=== PATIENT | female | born 1985 | race Caucasian/White ===

== ENCOUNTER 2018-11-05 17:45 | Outpatient (CLI) | payer OTHER ==
[~2018-11-05] VITALS: Ht 172.7 cm; Wt 65.5 kg
[2018-11-05 18:19] VITALS: Ht 172.7 cm; Wt 65.5 kg
[2018-11-05 18:20] VITALS: BP 123/80; PULSE 93; RESP 17
--- NOTE | 2018-11-05 23:42 | TRIAGE ---
OB Triage Datetime Report Generated by CPN: 11/05/2018 23:42 Datetime: 11/05/2018 19:01 Labor Evaluation Pattern: Normal: <= 5 Contractions in 10 Minutes Resting Tone Firth: Relaxed Contraction Comments: no uc Heart Rate FHR Baseline Rate: 125 Monitor Mode: External US Variability: Moderate 6-25 bpm Accelerations: 15X15 Decelerations: None Category: Category I Pain Assessment Pain Presence: None/Denies Pain Type: N/A Datetime: 11/05/2018 18:18 Assessment Type: Triage Maternal Assessment Level of Consciousness: Fully Conscious DTR's/Clonus: DTRs 2+; No Clonus Headache: Denies Blurred Vision: No Respiratory Effort: Unlabored; Regular Rhythm; Equal Expansion Breath Sounds, Left: Clear and Equal Breath Sounds, Right: Clear and Equal Nausea/Vomiting: Denies RUQ Epigastric Pain: Denies Lower Extremities Edema: None Degree: None Upper Extremities Edema: None Facial Edema: None Fall Risk Assessment History of Falling: (0) No Secondary Diagnosis: (0) No Ambulatory Aid: (0) Bedrest/Nurse Assist IV Therapy: (0) No Gait: (0) Normal/Bedrest/Immobile Mental Status: (0) Oriented to Own Ability Fall Score: 0 Fall Risk Score Definition: No Risk: No action required Datetime: 11/05/2018 18:13 Time of Arrival: 11/05/2018 17:36 EGA: 38.3 Arrived By: Ambulatory Arrived From: Office Chief Complaint: to triage from md office with referral form for nst, bpp, efw and s/d ration due t o S<D, Factor V deficiency, Movement: Present Contractions: Denies/Absent Rupture of Membranes: Denies Vaginal Bleeding: None Vaginal Discharge: Denies Recent Sexual Intercouse: Denies Abdominal Trauma: Not Applicable Patient Complaints: None Time Provider Notified: 10/29/2018 18:14 Provider Notified: Initial Plan: nst, bpp, efw, s/d ratio
--- NOTE | 2018-11-06 09:59 | PN ---
Triage Information Date/Time Reason for visit: Antepartum testing for size less than date Weeks of Gestation 38 weeks and 3 days /Para -0-2-1 Diabetes: none Hypertention: none Additional information Risk factors: 1. Factor V Leiden mutation (heterozygous) 2. Size less than date Objective Vital Signs Date Temp Pulse Resp B/P (MAP) Pulse Ox O2 O2 Flow FiO2 Time Delivery Rate 11/05/18 98.5 93 17 123/80 18:20 (94) Heart Rate: 130's Contractions: None Results/Medications Imaging Results FINDINGS: There is a single viable intrauterine gestation. Cardiac activity is present with 142 beats per minute. There is a breech head to the maternal left presentation. Measurements were made in order to determine age. The results are as follows: BPD = 8.81 cm 35 weeks 4 days HC = 31.89 cm 35 weeks 6 days AC = 32.52 cm 36 weeks 3 days FL = 6.80 cm 35 weeks 0 days. Estimated gestational age of approximately 35 weeks 5 days. The estimated date of delivery is 12/05/2018. The EFW = 2800 g 10.8% . The placenta is fundal grade 1. There is no evidence for an abruption There is a normal amount of amniotic fluid with an AHSAN = 19.5 cm. IMPRESSION: Single viable intrauterine gestation of approximately 35 weeks 5 days. The estimated date of delivery is 12/05/2018 Estimated weight 2800 g 10.8% Breech position . .Isaiah Hill MD, Date Time Electronically viewed and signed by .Isaiah Hill MD, on 11/05/2018 19:04 .W/ Disposition: Discharge Assessment/Plan 33 years old -0-2-1 with single intrauterine at 38 weeks and 3 da ys with KELY of 11/15/2018 seen in the clinic today. She referred for NST, biophysical profile and ultrasound for EFW for size less than date and Factor V Leiden mutation. She states good movement. She denies nausea, vomiting, shortness of breath, chest pain, headache, visual changes, vaginal bleeding or LOF. -FHR: No sign of metabolic acidosis- Category I -Contractions: None -Ultrasound performed: AHSAN 19.5, BPP 8 out of 8 -EFW as noted above, 10.8%, breech presentation. -Patient discussed over the phone with Dr. Burden who recommend delivery at 39 weeks. She needs prophylactic Lovenox at . -Melia for C/S at 39 for breech presentation, us prior to /S will be performed to confirm presentation, if is cephalic, IOL -Symptoms and sign of labor, preeclampsia, kick count discussed with patient, she voiced understanding. All of her questions answered. -Patient was discharged home in stable condition with the appropriate discharge instructions provided. I would like patient to have close follow-up with her primary physician or outpatient clinic in 1-2 days or return to triage for worsening symptoms or any other urgent concerns. ABI RYAN Nov 06, 2018 09:59
== END 2018-11-05 20:35 | disposition home or self-care (01) ==
LOC: OBT 17:45 → L-D 17:46 → OBT 20:35
PROVIDERS: ATTEND Obstetrics & Gynecology
DX: O26.843 Uterine size-date discrepancy, third trimester (principal); Z3A.38 38 weeks gestation of pregnancy
CPT/HCPCS: 76815; 76818; 76820; G0463

== ENCOUNTER 2018-11-09 08:28 | Inpatient (IN) | payer OTHER ==
[~2018-11-09] VITALS: Ht 172.7 cm; Wt 64.3 kg
[2018-11-09 08:47] VITALS: Ht 172.7 cm; Wt 64.3 kg
[2018-11-09] MEDS ORDERED: CARBOPROST 250 MCG INJ IM PRN ×2 (09:00→17:30)
[2018-11-09] MEDS ORDERED: CEFAZOLIN 2 GM/50 ML (PMX) 50 ML IVPB SCH (09:00)
[2018-11-09] MEDS ORDERED: MISOPROSTOL 200 MCG TAB PR PRN ×2 (09:00→17:30)
[2018-11-09] MEDS ORDERED: OXYTOCIN 30 UNITS/LR 500 ML IV SCH ×2 (09:00→17:12)
[2018-11-09] MEDS ORDERED: METHYLERGONOVINE 0.2 MG INJ IM PRN ×2 (09:00→17:30)
[2018-11-09] MEDS ORDERED: OXYTOCIN 30 UNITS/LR 500 ML IV PRN ×2 (09:00→17:30)
[2018-11-09] MEDS: LACTATED RINGER'S 1,000 ML IV SCH ×2 (09:20→11:40)
[2018-11-09] MEDS: CITRIC ACID/NA CITRATE 30 ML CUP PO ONE ×2 (09:30→10:16)
--- NOTE | 2018-11-09 11:05 | HP ---
Date/Time of Note Date/Time of Note DATE: 11/09/18 TIME: 10:59 OB - History Hx of Present Free Text/Dictation 33-year-old -0-0-1 with single intrauterine at 39 weeks and 1 day admitted for primary delivery due to breech presentation. She states good movement. She denies nausea, vomiting, shortness of breath, chest pain, headache, visual changes, vaginal bleeding or LOF. Risk factors: 1. Factor V Leyden mutation 2. Size less than dates 3. Tobacco use Chief Complaint: Scheduled for primary delivery for breech presentation Estimated Due Date: November 16, 2018 : 2 Para: 1 Spontaneous : 0 Therapeutic : 0 Care: Good Care Ultrasounds: Normal mid trimester US Obstetrical Complications: None Medical Complications: Other (Factor V Leyden mutationheterozygous) Past Family/Social History * Past Medical, Surgical, Family and Obstetric Histories reviewed from chart. Blood Type: O+ Rubella: immune RPR/VDRL: Negative GBS Status: Negative HBsAG: Negative OB Admission Exam Vital Signs Vital Signs Blood pressure 110/60, pulse rate 70/minutes, respiratory rate 16/minutes, temperature 98.5 Physical Exam HEENT: WNL Heart: Rhythm Normal Lungs: Clear Abdomen: WNL Extremities: Normal Membranes: Intact Heart Rate: 130's Accelerations: Accelerations Present Decelerations: No Decelerations Varibility: Moderate Contractions on Admission: None Last 72 hours Lab Results CBC & BMP 11/09/18 09:00 OB Assessment/Plan Other plan: 33-year-old -0-0-1 with single intrauterine at 39 weeks and 1 day with breech presentation admitted for primary low transverse delivery. External cephalic version discussed with patient during visit, she declined - FHR: No sign of metabolic acidosis- Category I - Continuous EFM, toco - CBC, blood type and screen - Please see the orders - O+/Rubella: Immune - GBS: Negative 2. Factor V Leyden mutation (heterozygous): Prophylactic Lovenox after delivery 3. Tobacco use: Smoking cessation options, effect of smoking on general health discussed with patient in detail. She expressed understanding. All of her questions answered. She currently has no plan. I strongly recommend follow-up with her primary physician. The risk of delivery including but not limited to bleeding, infection, injury to other organs (bowel, bladder, ureter, vessels, nerves), injury to fetus, blood transfusion, blood transfusion related infection, risk of anesthesia, adhesion, needs for future , removal of uterus or any other indicated surgery was discussed with the patient and her family. She expressed understanding. All of her questions were answered. She signed the informed consent. PHYSICIAN'S VERIFICATION OF INFORMED CONSENT The patient and her father counseled regarding the procedure, its indications, risks, potential complications and alternatives and any questions were answered. Consent was obtained. PLANNED PROCEDURE/TREATMENT: delivery with possible using vacuum/forceps and any other indicated surgery PHYSICIAN'S VERIFICATION OF INFORMED CONSENT FOR BLOOD TRANSFUSION: There is a reasonable possibility that blood transfusion will be necessary as a result of the patient's procedure. 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 All questions have been answered to the patient's satisfaction. INFORMED CONSENT:The patient has been informed of: The nature of the proposed care, treatment, services, medications, interventions or procedures. Potential benefits, risks or side effects, including potential problems related to recuperation. The likelihood of achieving care treatment and service goals. Reasonable alternatives to the proposed care, treatment and service. The relevant risks, benefits and side effects related to alternatives, including the possible results of not receiving care, treatment and services. When indicated, any limitations on the confidentiality of information learned from or about the patient. If appropriate, the risks, benefits and alternatives of the drugs to be used for sedation/analgesia including moderate sedation. If appropriate, patient has been provided information on the risks, benefits and alternatives to the transfusion of blood and/or blood products. If appropriate, patient has been provided information regarding the [place] Blood Act. ABI RYAN Nov 09, 2018 11:05
[2018-11-09] MEDS ORDERED: morphine SULFATE/PF (10 MG/10 ML) INJ ONE (12:04)
[2018-11-09] MEDS ORDERED: METOCLOPRAMIDE 10 MG INJ ONE (12:16)
[2018-11-09] MEDS ORDERED: ONDANSETRON 4 MG INJ ONE (12:16)
--- NOTE | 2018-11-09 13:00 | PREAC ---
Date/Time of Note Date/Time of Note DATE: 11/09/18 TIME: 12:56 Anesthesia Eval and Record Evaluation Time Pre-Procedure Interview DATE: 11/09/18 TIME: 11:44 Age 33 Sex female NPO: 8 hrs Preoperative diagnosis iup @ 39 wks., , factor v mutation, breech presentation Planned procedure primary c/s Past Medical History Past Medical History: Includes Pulm: Smoking Hx : : (2), Para: (1001), Gestational age: (39 wks.), Other (h/o cigs., cocaine, meth use) Surgery & Anesthesia Issues No known issue Meds Anticoagulation: No Beta Becca within 24 hr: No Reason Beta Becca not given: Pt. not on B-Becca No Active Prescriptions or Reported Meds Current Medications Lactated Ringer's 1,000 ml @ 125 mls/hr Q8H IV Last administered on 11/09/18at 11:40; Admin Dose 125 MLS/HR; Start 11/09/18 at 08:48 Cefazolin Sodium/ Dextrose 50 ml @ 100 mls/hr ONCE IVPB ; Start 11/09/18 at 09:00 Oxytocin/Lactated Ringer's 500 ml @ 125 mls/hr POST IV ; Start 11/09/18 at 09:00 Oxytocin/Lactated Ringer's 500 ml @ 0 mls/hr ONCE PRN IV .VAGINAL BLEEDING; Start 11/09/18 at 09:00 Methylergonovine Maleate (Methergine) 0.2 mg ONCE PRN IM .VAGINAL BLEEDING; Start 11/09/18 at 09:00 Carboprost Tromethamine (Hemabate) 250 mcg ONCE PRN IM .VAGINAL BLEEDING; Start 11/09/18 at 09:00 Misoprostol (Cytotec) 1,000 mcg ONCE PRN AL .VAGINAL BLEEDING; Start 11/09/18 at 09:00 Meds reviewed: Yes Allergies Coded Allergies: No Known Allergy (Unverified , 07/01/14) Allergies Reviewed: Yes Labs/Studies Labs Reviewed: Reviewed by anesthesiologist Result Diagram: 11/09/18 0900 Laboratory Tests 11/09/18 09:00 Blood Bank Test 11/09/18 09:00 Antibody Screen NEGATIVE Blood Type O POSITIVE Rh Immune Globulin Candidate NO test: Positive Studies: ECG (n/a), CXR (n/a) Pre-procedure Exam Airway: Adequate mouth opening, Adequate thyromental dist Mallampati: Mallampati II Teeth: Normal Lung: Normal Heart: Normal ASA Physical Status ASA physical status: 3 Emergency: E Planned Anesthetic General/MAC: TIVA (post baby) Neuraxial: Epidural Planned Pain Management Epidural, Sub-arachniod narcotics, Local by surgeon Pre-operative Attestations Prior to commencing anesthesia and surgery, the patient was re-evaluated, there was verification of: *The patient's identity *The results of appropriate recent lab work and preoperative vital signs *The above evaluation not changing prior to induction *Anesthetic plan, risk benefits, alternative and complications discussed with patient/family; questions answered; patient/family understands, accepts and wishes to proceed. Button Tacker used JOHANA MONTENEGRO MD Nov 09, 2018 13:00
[2018-11-09] MEDS ORDERED: MIDAZOLAM 1 MG/ML 2 ML INJ ONE ×3 (13:02→13:03)
[2018-11-09] MEDS ORDERED: OXYTOCIN 10 UNIT INJ ONE ×2 (13:02→13:28)
[2018-11-09] MEDS ORDERED: LACTATED RINGER'S 1,000 ML IV ONE (13:07)
[2018-11-09] MEDS ORDERED: ZOLPIDEM 5 MG TAB PO PRN (13:30)
[2018-11-09] MEDS ORDERED: ONDANSETRON 4 MG INJ IV PRN (13:30)
[2018-11-09] MEDS ORDERED: DIPHENHYDRAMINE 50 MG INJ IV PRN ×2 (13:30)
[2018-11-09] MEDS ORDERED: MIDAZOLAM 1 MG/ML 2 ML INJ IV PRN (13:30)
[2018-11-09] MEDS ORDERED: CITRIC ACID/NA CITRATE 30 ML CUP PO ONE (13:30)
[2018-11-09] MEDS ORDERED: NALOXONE (0.4 MG/ML) INJ IV PRN (13:30)
[2018-11-09] MEDS ORDERED: NALBUPHINE HCL (10 MG/1 ML) INJ IV PRN (13:30)
[2018-11-09] MEDS ORDERED: MEPERIDINE 25 MG INJ IV PRN (13:30)
[2018-11-09] MEDS ORDERED: HYDROmorphONE 0.5 MG/0.5 ML SYG IV PRN ×2 (13:30)
[2018-11-09] MEDS: KETOROLAC 30 MG INJ IV PRN ×2 (14:24→21:24)
--- NOTE | 2018-11-09 15:05 | OPR ---
Operative Report Planned Procedure Procedure date Nov 09, 2018 Procedure(s) Primary low transverse delivery Performed by see signature line Jewelry Bench Molder: KEN JEFF MD Anesthesiologist: JOHANA MONTENEGRO MD Pre-procedure diagnosis 33-year-old -0-0-1 with single intrauterine at 39 weeks and 1 day with breech presentation [id number] Anesthesia Type: [id number] spinal Post-Procedure Post-procedure diagnosis 33-year-old -0-0-1 with single intrauterine at 39 weeks and 1 day with gavi breech presentation Findings 1. Normal uterus, fallopian tubes and ovaries 2. Viable female in gavi breech presentation. 8 at one minute and 9 in 5 minutes. Weight: 6 pounds 9 ounces. Time of delivery: 13:04 3. Placenta with three vessel cord 4. Amniotic fluid - Clear Estimated Blood Loss: 500 - 600 mls Specimen(s) none Grafts/Implant(s) none Complication(s) none Pt Condition post procedure: stable Disposition: PACU Procedure Description INDICATION AND HISTORY: A 33-year-old -0-0-1 with single intrauterine at 39 weeks and 1 day with breech presentation. The risk of delivery including but not limited to bleeding, infection, injury to other organs (bowel, bladder, ureter, vessels, nerves), injury to fetus, blood transfusion, blood transfusion related infection, risk of anesthesia, adhesion, needs for future , removal of uterus or any other indicated surgery was discussed with the patient and her family. She expressed understanding. All of her questions were answered. She signed the informed consent. DESCRIPTION OF OPERATION: The patient was taken to the operating room, where she was identified and the procedure was verified. The patient received two gram of Ancef 30 minutes prior to surgery. Spinal anesthesia was placed. The patient placed in the dorsal supine position with a left tilt. The heart rate was 134 bpm. The patient was then prepped and draped in the normal sterile fashion. A Pfannenstiel skin incision was made and carried down to the fascia with Bovie. The fascia was incised in the midline and the fascial incision was carried laterally with Jose scissors. The superior portion of the fascial incision was then grasped with Anna clamps and tented up and dissected off the underlying rectus muscle with sharp dissection. The lower portion of the fascial incision was then made in a similar fashion. The rectus muscle was and the peritoneum was entered. The peritoneal incision was then stretched and a bladder blade was inserted. Then, an incision was made in the lower uterine segment in a transverse fashion with a knife and extended bluntly. The was delivered atraumatically in double footling breech presentation with the above findings. The umbilical cord was clamped and cut. The neonatology resuscitation team was present and the baby was handed to them. A cord blood sample was obtained for further evaluation. The placenta and membrane, which appeared normal were Removed. The uterus was exteriorized and cleared of all clot and debris. The uterus was then closed in a two layer fashion with 0- Monocryl. At the time of closure, hemostasis was noted. The gutters were irrigated. The peritoneum was reapproximated with 3-0 Vicryl. The muscle was reapproximated with 3-0 Vicryl. The fascia was approximated with 0-Vicryl in a running fashion.The subcutaneous tissue was re approximated with 3-0 vicryl. The skin was closed with 4-0 Monocryl. All instruments, sponges and needle counts were correct x3. The patient tolerated the procedure well. She transferred to the recovery room in stable condition. ABI RYAN Nov 09, 2018 15:04
[2018-11-09] MEDS ORDERED: ACETAMINOPHEN 1000MG/100ML IV 100 ML IVPB SCH (15:30)
[2018-11-09 17:00] VITALS: BP 130/79; RESP 18
[2018-11-09] MEDS: DEXTROSE 5%-LR 1,000 ML IV SCH (17:12)
[2018-11-09] MEDS ORDERED: LANOLIN HPA 1 PKT TOP PRN (17:30)
[2018-11-09] MEDS ORDERED: METHYLERGONOVINE 0.2 MG TAB PO PRN (17:30)
[2018-11-09] MEDS ORDERED: MAGNESIUM HYDROXIDE 30ML CUP PO PRN (17:30)
[2018-11-09 18:00] VITALS: BP 133/72; RESP 18
--- NOTE | 2018-11-09 19:34 | PAC ---
Date/Time of Note Date/Time of Note DATE: 11/09/18 TIME: 19:34 Post-Anesthesia Notes Post-Anesthesia Note Last documented vital signs Vital Signs Date Temp Pulse Resp B/P (MAP) Pulse Ox O2 O2 Flow FiO2 Time Delivery Rate 11/09/18 98.6 18 133/72 98 Room Air 18:00 (92) Activity: WNL Respiratory function: WNL Cardiovascular function: WNL Mental status: Baseline Pain reasonably controlled: Yes Hydration appropriate: Yes Nausea/Vomiting absent: Yes JOHANA MONTENEGRO MD Nov 09, 2018 19:34
[2018-11-09 20:00] VITALS: BP 109/68; RESP 19
[2018-11-09] MEDS: SENNA/DOCUSATE NA (8.6MG/50MG) TAB PO SCH (21:00)
[2018-11-10] VITALS: BP 107/60; RESP 18
[2018-11-10] MEDS: LACTATED RINGER'S 1,000 ML IV SCH ×2 (02:23→12:33)
[2018-11-10 04:00] VITALS: BP 103/59; RESP 17
--- NOTE | 2018-11-10 05:58 | OPPN ---
Date/Time of Note Date/Time of Note DATE: 11/10/18 TIME: 05:56 Anesthesia Follow up Anesthesia Follow up Last documented vital signs Vital Signs Date Temp Pulse Resp B/P (MAP) Pulse Ox O2 O2 Flow FiO2 Time Delivery Rate 11/10/18 98.4 17 103/59 97 Room Air 04:00 (74) Respiratory function: WNL Cardiovascular function: WNL Comments S: pt. is pod #1. min. bt. pain. min. need for bt. pain meds, ie. nsaids, opiates. ambulating. min. n/v. O: vss, afeb. A: min. bt. pain sec. to it MSO4. P: no complications. JOHANA MONTENEGRO MD Nov 10, 2018 05:58
[2018-11-10 08:30] VITALS: BP 103/61; PULSE 80; RESP 18
[2018-11-10] MEDS: SENNA/DOCUSATE NA (8.6MG/50MG) TAB PO SCH ×2 (09:53→21:11)
[2018-11-10] MEDS: KETOROLAC 30 MG INJ IV PRN (09:53)
[2018-11-10] MEDS: ENOXAPARIN 40 MG/0.4 ML SYG SC SCH (09:56)
[2018-11-10] MEDS ORDERED: DIPHTH/TET/ACEL PERTUSS (ADULT) 0.5 ML VIAL IM* ONE (11:00)
[2018-11-10 12:30] VITALS: BP 102/67; PULSE 81; RESP 16
[2018-11-10] MEDS: DEXTROSE 5%-LR 1,000 ML IV SCH (12:34)
[2018-11-10] MEDS: IBUPROFEN 800 MG TAB PO SCH ×2 (14:00→22:10)
[2018-11-10 16:44] VITALS: BP 104/70; PULSE 83; RESP 16
[2018-11-10] MEDS: HYDROCODONE/APAP (5/325) TAB NGT PRN (16:44)
[2018-11-10 19:25] VITALS: BP 115/71; PULSE 85; RESP 18
--- NOTE | 2018-11-10 20:31 | PN ---
Date/Time of Note Date/Time of Note DATE: 11/10/18 TIME: 20:27 OB Subjective Subjective Subjective POD#1 Patient is doing well. She denies nausea, vomiting, shortness of breath, chest pain, headache. She has been ambulating without difficulty, tolerating regular diet. Pain is well controlled on current medications OB Objective Objective Objective VS - Last 72 Hours, by Label Date Temp Pulse Resp B/P (MAP) Pulse Ox O2 O2 Flow FiO2 Time Delivery Rate 11/10/18 98.2 83 16 104/70 Room Air 16:44 (81) 11/10/18 98.5 81 16 102/67 Room Air 12:30 (79) 11/10/18 99.2 80 18 103/61 97 Room Air 08:30 (75) 11/10/18 98.4 17 103/59 97 Room Air 04:00 (74) 11/10/18 99.2 18 107/60 97 Room Air 00:00 (76) 11/09/18 98.8 19 109/68 97 Room Air 20:00 (82) 11/09/18 98.6 18 133/72 98 Room Air 18:00 (92) 11/09/18 98.2 18 130/79 99 Room Air 17:00 (96) General: AAO X 3, comfortable, NAD, appropriate mood and affect. Heart: RRR +S1, +S2, no murmurs. Lungs: Clear to auscultation (B/L), no rales, rhonchi or wheezing. ABD: +BS. Soft, non-tender. Uterus 2 cm below umbilicus Incision: Clear, dry, intact. No erythema, drainage or induration. Flank: No CVA tenderness (B/L) LE: Mild edema. No clubbing, cyanosis, thigh or calf tenderness (B/L). Homans 'sign is negative OB Assessment/Plan Other plan: 33 years old 2 para 2-0-0-2 s/p primary delivery for breech presentation. POD#1 - AF, VSS - Baby is doing well, at bed side. She is bonding well - Contraception methods with R/B/A/FR discussed - Continue care 2) factor V Leyden mutationheterozygous: Is currently on prophylactic dose of Lovenox 40 mg daily subcut 3) tobacco use: Effect on general health, and smoking cessation discussed in detail with patient. She expressed understanding. All of her questions answered. 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
[2018-11-10] MEDS: HYDROCODONE/APAP (5/325) TAB GTB SCH (22:10)
[2018-11-11 03:46] VITALS: BP 114/65; PULSE 82; RESP 18
[2018-11-11] MEDS: HYDROCODONE/APAP (5/325) TAB GTB SCH ×3 (05:41→21:47)
[2018-11-11] MEDS: IBUPROFEN 800 MG TAB PO SCH ×3 (05:41→18:29)
[2018-11-11 08:00] VITALS: BP 118/65; PULSE 76; RESP 18
[2018-11-11] MEDS: SENNA/DOCUSATE NA (8.6MG/50MG) TAB PO SCH ×2 (09:19→21:47)
[2018-11-11] MEDS: ENOXAPARIN 40 MG/0.4 ML SYG SC SCH (09:20)
[2018-11-11 16:05] VITALS: BP 112/68; PULSE 95; RESP 18
[2018-11-11 19:50] VITALS: BP 121/82; PULSE 93; RESP 20
--- NOTE | 2018-11-11 21:18 | PN ---
Date/Time of Note Date/Time of Note DATE: 11/11/18 TIME: 21:18 OB Subjective Subjective Subjective POD#2 Patient is doing well. She denies nausea, vomiting, shortness of breath, chest pain, headache. She has been ambulating without difficulty, tolerating regular diet. Pain is well controlled on current medications OB Objective Objective Objective Vital Signs Date Temp Pulse Resp B/P (MAP) Pulse Ox O2 O2 Flow FiO2 Time Delivery Rate 11/12/18 98.1 82 18 114/77 Room Air 04:00 (89) 11/10/18 97 08:30 General: AAO X 3, comfortable, NAD, appropriate mood and affect. ABD: +BS. Soft, non-tender. Uterus 2 cm below umbilicus Incision: Clear, dry, intact. No erythema, drainage or induration. Flank: No CVA tenderness (B/L) LE: Mild edema. No clubbing, cyanosis, thigh or calf tenderness (B/L). Homans 'sign is negative OB Assessment/Plan Other plan: 33 years old 2 para 2-0-0-2 s/p primary delivery for breech presentation. POD#2 - AF, VSS - Baby is doing well, at bed side. She is bonding well - Contraception methods with R/B/A/FR discussed - Continue care - Discharge home tomorrow Prescription and instruction given Follow-up in 1 and 6 weeks 2) factor V Leyden mutationheterozygous: Is currently on prophylactic dose of Lovenox 40 mg daily subcut. Recommend baby aspirin daily 3) tobacco use: Effect on general health, and smoking cessation discussed in detail with patient. She expressed understanding. All of her questions answered. 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
[2018-11-11] MEDS ORDERED: PETROLATUM 5 GM OINT TOP ONE (22:22)
[2018-11-12 04:00] VITALS: BP 114/77; PULSE 82; RESP 18
[2018-11-12] MEDS: HYDROCODONE/APAP (5/325) TAB GTB SCH ×2 (05:58→14:00)
[2018-11-12] MEDS: IBUPROFEN 800 MG TAB PO SCH ×2 (05:58→14:00)
[2018-11-12 08:35] VITALS: BP 115/73; PULSE 90; RESP 17
[2018-11-12] MEDS ORDERED: MEASLES,MUMPS,RUBELLA VACCINE INJ SC* ONE (09:00)
[2018-11-12] MEDS ORDERED: DIPHTH/TET/ACEL PERTUSS (ADULT) 0.5 ML VIAL IM* ONE (09:00)
[2018-11-12] MEDS: ENOXAPARIN 40 MG/0.4 ML SYG SC SCH (09:18)
[2018-11-12] MEDS: SENNA/DOCUSATE NA (8.6MG/50MG) TAB PO SCH (09:18)
--- NOTE | 2018-11-12 09:48 | DS ---
Date/Time of Note Date/Time of Note DATE: 11/12/18 TIME: 09:46 Obstetrical Discharge Record Final Diagnosis Final Diagnosis: Term delivered Other Final Diagnosis 33 years old 2 para 2-0-0-2 s/p primary delivery for breech presentation. POD#3. She is ambulating and tolerating regular diet pain is controlled on current medication she is voiding without difficulty and had bowel movement. Overall the course was unremarkable - AF, VSS - Baby is doing well, at bed side. She is bonding well - Contraception methods with R/B/A/FR discussed - Continue care - Discharge home tomorrow - Prescription and instruction given - Follow-up in 1 and 6 weeks 2) factor V Leyden mutationheterozygous: Is currently on prophylactic dose of Lovenox 40 mg daily subcut, discontinued on postoperative day 3. Recommend baby aspirin daily for 6 weeks 3) tobacco use: Effect on general health, and smoking cessation discussed in detail with patient. She expressed understanding. All of her questions answered. medical social worker consult placed Section Section: Primary (Breech presentation) Condition on Discharge Physical Assessment Last Vitals: Vital Signs Date Temp Pulse Resp B/P (MAP) Pulse Ox O2 O2 Flow FiO2 Time Delivery Rate 11/12/18 98.1 82 18 114/77 Room Air 04:00 (89) 11/10/18 97 08:30 Voiding: Yes Bowel Movement: Yes Breast: Soft, non-tender Fundus: Firm Calf Tenderness: No Patient Condition: Stable ABI RYAN Nov 12, 2018 09:48
[2018-11-12] MEDS: HYDROCODONE/APAP (5/325) TAB NGT PRN (12:15)
--- NOTE | 2018-11-13 14:44 | DELSUM ---
Delivery Summary A-C Datetime Report Generated by CPN: 11/13/2018 14:44 DELIVERY PERSONNEL Truck Despatcher: Mao, Conchita MATERNAL INFORMATION Delivery Anesthesia: Epidural Medications in Delivery: See Anesthesia notes Delivery QBL (ml): 500 Placenta Cultured: No Maternal Complications: None LABOR SUMMARY EDC: 11/16/2018 00:00 No. Babies in Womb: 1 Attempted: No Labor Anesthesia: Epidural LABOR INFORMATION Reason for Induction: Not Applicable Oxytocin: N/A Group B Beta Strep: Negative Antibiotics # of Doses: 1 Antibiotics Time of Last Dose: 11/09/2018 12:30 Steroids Given: None Reason Steroids Not Administered: Not Applicable MEMBRANES Membranes Rupture Method: Artificial Rupture of Membranes: 11/09/2018 13:01 Length of Rupture (hr): 0.05 Amniotic Fluid Color: Clear Amniotic Fluid Amount: Moderate Amniotic Fluid Odor: None STAGES OF LABOR Stage 3 hr: 0 Stage 3 min: 1 CSECTION DELIVERY Primary Indication: Other Other Primary Indication: BREECH Secondary Indication: N/A CSection Urgency: Non Elective CSection Incidence: Primary Labor: No Labor Elective: Nonelective CSection Incision: Lower Uterine Transverse BABY A INFORMATION Infant Delivery Date/Time: 11/09/2018 13:04 Method of Delivery: Born in Route : No : N/A Forceps: N/A Vacuum Extraction: N/A Shoulder Dystocia : No SHOULDER DYSTOCIA BABY A Infant Delivery Date/Time: 11/09/2018 13:04 PRESENTATION/POSITION BABY A Presentation: Breech Cephalic Presentation: N/A Vertex Position: N/A Breech Presentation: Single Footling PLACENTA INFORMATION BABY A Placenta Delivery Time : 11/09/2018 13:05 Placenta Method of Delivery: Manual Removal Placenta Status: Delivered SCORES BABY A Heart Rate 1 min: >100 bpm Resp Effort 1 min: Good Cry Reflex Irritability 1 min: Cough/Sneeze/Pulls Away Muscle Tone 1 min: Active Motion Color 1 min: Blue/Pale Resuscitation Effort 1 min: Tactile Stimulation SCORE 1 MIN: 8 Heart Rate 5 min: >100 bpm Resp Effort 5 min: Good Cry Reflex Irritability 5 min: Cough/Sneeze/Pulls Away Muscle Tone 5 min: Active Motion Color 5 min: Body [place], Extremit Blue Resuscitation Effort 5 min: Tactile Stimulation SCORE 5 MIN: 9 INFANT INFORMATION BABY A Gestational Age at Delivery: 39.0 Gestational Status: Full Term- 39- 40.6 Weeks Outcome : Liveborn Condition : Stable Infant Sex: Female IDENTIFICATION/MEDS BABY A ID Band Number: [id number] ID Band Location: Right Leg; Left Arm Sensor Applied: Yes Sensor Number: [id number] Sensor Location : Cord Clamp Vitamin K Given : Aquamephyton 1 mg IM Erythromycin Given: Given Both Eyes WEIGHT/LENGTH BABY A Infant Birthweight (gm): 2980 Weight (lb): 6 Infant Weight (oz): 9 Infant Length (in): 19.50 Infant Length (cm): 49.53 CORD INFORMATION BABY A No. 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
== END 2018-11-12 14:43 | disposition home or self-care (01) | DRG 787 ==
LOC: L-D 08:28 → PP1 16:50 → EDSTATUS 11-16 08:27
PROVIDERS: ADMIT Obstetrics & Gynecology; ATTEND Obstetrics & Gynecology
PROC: 10D00Z1 Extraction of Products of Conception, Low, Open Approach (ICD-10-PCS; principal; 2018-11-09)
DX: O32.1XX0 Maternal care for breech presentation, not applicable or unspecified (principal); O99.12 Other diseases of the blood and blood-forming organs and certain disorders involving the immune mechanism complicating childbirth; D68.51 Activated protein C resistance; O36.5930 Maternal care for other known or suspected poor fetal growth, third trimester, not applicable or unspecified; O99.334 Smoking (tobacco) complicating childbirth; F17.200 Nicotine dependence, unspecified, uncomplicated; Z3A.39 39 weeks gestation of pregnancy; Z37.0 Single live birth
CPT/HCPCS: 62322; 76815; 80307; 85025; 85610; 85730; 86592; 86850; 86900; 86901; 87340; 99464; J0131; J0690; J1170; J1650; J1885; J2250; J2274; J2405; J2590; J2765; J7120; J7121